=== PATIENT | male | born 1960 ===

== ENCOUNTER 2022-06-19 09:09 | Outpatient (CLI) | payer OTHER | END 2022-06-19 23:59 | disposition short-term general hospital (02) | LOC: EMS 09:09 | DX: S21.342A Puncture wound with foreign body of left front wall of thorax with penetration into thoracic cavity, initial encounter (principal); S27.2XXA Traumatic hemopneumothorax, initial encounter; X78.1XXA Intentional self-harm by knife, initial encounter; Y92.008 Other place in unspecified non-institutional (private) residence as the place of occurrence of the external cause ==